=== PATIENT | male | born 1995 | race Caucasian/White ===

== ENCOUNTER 2021-05-23 20:23 | Emergency (ER) | payer SELFPAY ==
[2021-05-23 20:35] VITALS: BP 116/60; PULSE 83; TEMP 97; BMI 26.5
== END 2021-05-23 23:03 | disposition home or self-care (01) ==
LOC: JERFT 20:23
DX: S05.01XA Injury of conjunctiva and corneal abrasion without foreign body, right eye, initial encounter (principal); S05.02XA Injury of conjunctiva and corneal abrasion without foreign body, left eye, initial encounter; W26.8XXA Contact with other sharp object(s), not elsewhere classified, initial encounter
CPT/HCPCS: 99283-25